=== PATIENT | female | born 1990 | race Caucasian/White ===

== ENCOUNTER 2024-07-08 00:58 | Emergency (ER) | payer MEDICAID ==
[~2024-07-08] VITALS: Ht 162.6 cm; Wt 103.0 kg
[2024-07-08] MEDS ORDERED: PREGABALIN 100 MG CAPSULE ONE (03:01)
[2024-07-08] MEDS ORDERED: PREG300C19 PO (03:02)
[2024-07-08] MEDS: PREGABALIN 100 MG CAPSULE PO STA (03:05)
[2024-07-08 03:17] VITALS: BP 121/70; O2SAT 98
== END 2024-07-08 03:25 | disposition home or self-care (01) ==
LOC: ER 01:35
DX: G40.909 Epilepsy, unspecified, not intractable, without status epilepticus (principal); Z76.0 Encounter for issue of repeat prescription; Z79.899 Other long term (current) drug therapy
CPT/HCPCS: A4606; A4663